=== PATIENT | female | born 1995 | race Caucasian/White ===

== ENCOUNTER 2018-03-22 22:46 | Emergency (ER) | payer BC ==
[2018-03-22] MEDS ORDERED: diphenhydrAMINE 25 MG CAP ONE (23:04)
[2018-03-22] MEDS ORDERED: Famotidine 20 MG TAB ONE (23:04)
[2018-03-22] MEDS ORDERED: predniSONE 20 MG TAB ONE (23:04)
== END 2018-03-22 23:25 | disposition home or self-care (01) ==
LOC: SCSER 22:46
DX: T78.40XA Allergy, unspecified, initial encounter (principal); J45.909 Unspecified asthma, uncomplicated; Z79.899 Other long term (current) drug therapy
CPT/HCPCS: J7506; J7620